=== PATIENT | female | born 1990 | race Caucasian/White ===

== ENCOUNTER 2020-02-19 15:49 | Emergency (ER) | payer MEDICAID ==
--- NOTE | 2020-02-19 16:19 | EDM.PDOC ---
ED HPI GENERAL MEDICAL PROBLEM - General Chief Complaint: ENT Problem Stated Complaint: LT SIDE TOOTH PAIN Time Seen by Provider: 02/19/20 16:10 Source of Information: Reports: Patient History Limitations: Reports: No Limitations - History of Present Illness INITIAL COMMENTS - FREE TEXT/NARRATIVE: Patient presents to the ED today with left upper tooth pain/broken tooth. Patient has had a broken tooth for the last few months, pain became worse the last week, lying down makes pain worse. Patient has had little relief with Ibuprofen and Tylenol. Patient has tried Dentek with little relief. Patient denies any fever/chills or other complaints. 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 ED EXAM, ENT - Physical Exam Exam: See Below Exam Limited By: No Limitations General Appearance: Alert, WD/WN, No Apparent Distress Eye Exam: Bilateral Eye: EOMI Ears: Normal External Exam Nose: Normal Inspection Mouth/Throat: Normal Inspection, Other (uvula is midline, no trismus or fabiano's angina, no abscess identified that would require I and D. Patient has broken upper left back molar) Head: Atraumatic Neck: Normal Inspection, Supple, Non-Tender, Full Range of Motion. No: Lymphadenopathy (R), Lymphadenopathy (L) Respiratory/Chest: No Respiratory Distress Cardiovascular: Tachycardia Extremities: Normal Inspection Neurological: Alert, Oriented Psychiatric: Normal Affect Skin: Warm, Dry Lymphatic: No Adenopathy Course - Vital Signs Last Recorded V/S: Last Vital Signs Temp 36.7 C 02/19/20 16:05 Pulse 110 H 02/19/20 16:05 Resp 12 02/19/20 16:05 BP 152/92 H 02/19/20 16:05 Pulse Ox 99 02/19/20 16:05 Start Amoxicillin Ibuprofen for pain Percocet for severe pain. Dental referral request placed. Narcotic safety and side effects discussed as well as reasons to return to the ED. Patient agreeable to plan of care and discharged in stable condition. Departure - Departure Time of Disposition: 17:00 Disposition: Home, Self-Care 01 Condition: Good Clinical Impression: Pain, dental Fracture of tooth Qualifiers: Encounter type: initial encounter Fracture type: closed Qualified Code(s): S02.5XXA - Fracture of tooth (traumatic), initial encounter for closed fracture - Discharge Information Instructions: Tooth Injuries, [id number] Referrals: PCP,None [Primary Care Provider] - Forms: ED Department Discharge Additional Instructions: You can take Ibuprofen 600 mg every 6 hours as needed for pain. Percocet as prescribed as needed for pain, this is a narcotic and does contain Tylenol, do not drive or drink alcohol if you take it. Start Amoxicillin today and take as directed. Follow up with Dentistry as scheduled. Sepsis Event Note (ED) - Evaluation Sepsis Screening Result: No Definite Risk - Focused Exam Vital Signs: Vital Signs Temp Pulse Resp BP Pulse Ox 02/19/20 16:05 36.7 C 110 H 12 152/92 H 99 02/19/20 16:01 36.7 C 110 H 12 152/92 H 99
== END 2020-02-19 16:24 | disposition home or self-care (01) ==
LOC: JP.ED 15:49
DX: K03.81 Cracked tooth (principal); E66.9 Obesity, unspecified; Z68.43 Body mass index [BMI] 50.0-59.9, adult; I11.0 Hypertensive heart disease with heart failure; I50.9 Heart failure, unspecified
CPT/HCPCS: 99282

== ENCOUNTER 2020-09-11 16:35 | Emergency (ER) | payer MEDICAID ==
--- NOTE | 2020-09-11 17:11 | EDM.PDOC ---
ED HPI GENERAL MEDICAL PROBLEM - General Chief Complaint: Chest Pain Stated Complaint: RT SIDE CHEST PAIN Time Seen by Provider: 09/11/20 17:00 Source of Information: Reports: Patient History Limitations: Reports: No Limitations - History of Present Illness INITIAL COMMENTS - FREE TEXT/NARRATIVE: 29-year-old female who has been struggling with right-sided chest wall pain radiating through the shoulder and down her arm for the past 3 days. She has been taking ibuprofen with minimal relief. She is very anxious, her father had heart failure and she is concerned she is having a heart attack. It is very pleuritic in nature, hurts to breathe or move her right arm. No rashes, cough, shortness of breath or fever. 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, Musculoskeletal History: Reports: Fracture Psychiatric History: Reports: Anxiety, Depression, Panic Attack, PTSD Endocrine/Metabolic History: Reports: Obesity/BMI 30+ - Infectious Disease History Infectious Disease History: Reports: Chicken Pox - Past Surgical History Head Surgeries/Procedures: Reports: None HEENT Surgical History: Reports: Tonsillectomy Cardiovascular Surgical History: Reports: None GI Surgical History: Reports: Hernia, Abdominal Female Surgical History: Reports: Section Endocrine Surgical History: Reports: None Musculoskeletal Surgical History: Reports: Other (See Below) Other Musculoskeletal Surgeries/Procedures:: left ankle Dermatological Surgical History: Reports: None Social & Family History - Tobacco Use Tobacco Use Status *Q: Never Tobacco User Second Hand Smoke Exposure: No - Caffeine Use Caffeine Use: Reports: None - Recreational Drug Use Recreational Drug Use: No ED ROS GENERAL - Review of Systems Review Of Systems: See Below Constitutional: Denies: Fever, Chills HEENT: Reports: No Symptoms Respiratory: Reports: Pleuritic Chest Pain. Denies: Shortness of Breath, Cough Cardiovascular: Reports: Chest Pain. Denies: Palpitations GI/Abdominal: Denies: Nausea, Vomiting Musculoskeletal: Reports: Other (Pain radiating down the right arm) Skin: Reports: No Symptoms Psychiatric: Reports: Anxiety ED EXAM, GENERAL - Physical Exam Exam: See Below Exam Limited By: No Limitations General Appearance: Alert, No Apparent Distress, Anxious Head: Atraumatic Respiratory/Chest: No Respiratory Distress, Lungs Clear, Other (O2 saturations 99 to 100%, she is very sore to palpation along the right anterior costochondral area) Cardiovascular: Regular Rate, Rhythm. No: Tachycardia Extremities: Other (I cannot reproduce pain with palpation of the right arm, but she has intense sharp pain in the anterior right chest with abduction of the right arm against resistance) Neurological: Alert, Oriented #1 Interpretation Rhythm: NSR Course - Vital Signs Last Recorded V/S: Last Vital Signs Temp 97.7 F 09/11/20 16:58 Pulse 83 09/11/20 16:58 Resp 16 09/11/20 16:58 BP 172/109 H 09/11/20 16:58 Pulse Ox 99 09/11/20 16:58 - Orders/Labs/Meds Orders: Active Orders 24 hr Category Date Time Status Chest 2V [CR] Routine Exams 09/11/20 17:06 Taken EKG 12 Lead [EK] Routine Ther 09/11/20 17:06 Ordered Meds: Medications Discontinued Medications Generic Name Dose Route Start Last Admin Trade Name Dionq PRN Reason Stop Dose Admin Lorazepam 1 mg 09/11/20 17:29 09/11/20 17:34 Ativan IM 09/11/20 17:30 1 mg ONETIME ONE Administration - Re-Assessments/Exams Free Text/Narrative Re-Assessment/Exam: 09/11/20 17:10 Because of the presentation of chest pain, an EKG was done by nursing and was normal. A two-view chest x-ray will be obtained. This is likely costochondritis or pleurisy, PE is extremely unlikely with 100% O2 saturations and no tachycardia, especially being positional and worse with palpation. 09/12/20 07:05 Chest xray is normal Departure - Departure Time of Disposition: 17:42 Disposition: Home, Self-Care 01 Clinical Impression: Costochondritis, acute, Anxiety about health - Discharge Information Instructions: Costochondritis, [id number] Referrals: PCP,None [Primary Care Provider] - Forms: ED Department Discharge Care Plan Goals: Continue with ibuprofen, add tramadol as needed and continue activity as tolerated. A heating pad to the anterior right chest may be helpful. Recheck with Dr. Licea as soon as she has an opening. Sepsis Event Note (ED) - Evaluation Sepsis Screening Result: No Definite Risk - My Orders Last 24 Hours: My Active Orders 09/11/20 17:06 Chest 2V [CR] Routine EKG 12 Lead [EK] Routine - Assessment/Plan Last 24 Hours: My Active Orders 09/11/20 17:06 Chest 2V [CR] Routine EKG 12 Lead [EK] Routine
[2020-09-11] MEDS ORDERED: LORazepam 2 MG/ML SDV IM ONE (17:29)
--- NOTE | 2020-09-12 08:58 | CR ---
CHEST: 2 view CLINICAL HISTORY:Dyspnea COMPARISON:None FINDINGS: The heart size, pulmonary vascularity and hilar structures are normal. No infiltrate effusion or pneumothorax is seen. IMPRESSION: No acute cardiopulmonary process.
== END 2020-09-11 17:42 | disposition home or self-care (01) ==
LOC: JP.ED 16:35
DX: M94.0 Chondrocostal junction syndrome [Tietze] (principal); F41.9 Anxiety disorder, unspecified; I10 Essential (primary) hypertension; E66.9 Obesity, unspecified; Z68.42 Body mass index [BMI] 45.0-49.9, adult; Z88.8 Allergy status to other drugs, medicaments and biological substances
CPT/HCPCS: 71046; 93005; 96372; 99283; 99285; J2060

== ENCOUNTER 2021-02-28 05:45 | Emergency (ER) | payer MEDICAID ==
[2021-02-28] MEDS ORDERED: Bupivacaine 0.5%/EPINEPHrine 1:200,000 1.8 ML Cartridge INJECT ONE (06:14)
--- NOTE | 2021-02-28 06:27 | EDM.PDOC ---
ED HPI GENERAL MEDICAL PROBLEM - General Chief Complaint: ENT Problem Stated Complaint: TOOTH PAIN Time Seen by Provider: 02/28/21 06:05 Source of Information: Reports: Patient History Limitations: Reports: No Limitations - History of Present Illness INITIAL COMMENTS - FREE TEXT/NARRATIVE: Pallavi is a 30-year-old female presenting to the ED for evaluation of severe tooth pain involving tooth #17 that started several days ago and has been preventing her from being able to sleep. She has been trying to take care of her 1-year-old daughter, however, the pain is become so severe that she is feeling more and more rundown. She has a history of dental caries in this tooth but usually is able to take a tooth brushing cleared out thereby leaving any pressure pain. 2 days ago this no longer seem to work. She does have some swelling of the gum around the tooth. She has not been able to get into see a dentist to address this. She denies any fever, chills, nausea or vomiting. She has not had any foul tasting substance in her mouth resulting from purulent discharge from the tooth. 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, Musculoskeletal History: Reports: Fracture Psychiatric History: Reports: Anxiety, Depression, Panic Attack, PTSD Endocrine/Metabolic History: Reports: Obesity/BMI 30+ - Infectious Disease History Infectious Disease History: Reports: Chicken Pox - Past Surgical History Head Surgeries/Procedures: Reports: None HEENT Surgical History: Reports: Tonsillectomy GI Surgical History: Reports: Hernia, Abdominal Female Surgical History: Reports: Section Endocrine Surgical History: Reports: None Musculoskeletal Surgical History: Reports: Other (See Below) Other Musculoskeletal Surgeries/Procedures:: left ankle Social & Family History - Tobacco Use Tobacco Use Status *Q: Never Tobacco User - Caffeine Use Caffeine Use: Reports: None - Recreational Drug Use Recreational Drug Use: No ED ROS ENT - Review of Systems Review Of Systems: See Below Constitutional: Reports: No Symptoms HEENT: Reports: Dental Pain (Dental pain and swelling around tooth #17 that has advanced caries) Respiratory: Reports: No Symptoms ED EXAM, ENT - Physical Exam Exam: See Below Exam Limited By: No Limitations General Appearance: Alert, Moderate Distress Mouth/Throat: Dental Abcess (Gingival swelling around the base of tooth #17), Dental Pain (Pain with palpation on tooth #17), Dental Tenderness (Three quarters of the crown has eroded exposing dentin and pulp. There is significant tenderness of the tooth with gingival swelling.), Gum Swelling. No: Throat Swelling, Tongue Swelling Head: Atraumatic, Normocephalic. No: Facial Swelling Neck: Lymphadenopathy (L). No: Lymphadenopathy (R) Course - Vital Signs Last Recorded V/S: Last Vital Signs Temp 36.4 C 02/28/21 06:12 Pulse 70 02/28/21 06:12 Resp 17 02/28/21 06:12 BP 194/90 H 02/28/21 06:12 Pulse Ox 99 02/28/21 06:12 - Orders/Labs/Meds Meds: Medications Discontinued Medications Generic Name Dose Route Start Last Admin Trade Name Dinoq PRN Reason Stop Dose Admin Bupivacaine HCl/Epinephrine Bitart 1.8 ml 02/28/21 06:14 02/28/21 06:20 Bupivacaine 0.5%/Epinephrine 1:200,000 1.8 Ml Cartridge INJECT 02/28/21 06:15 1.8 ml ONETIME ONE Administration - Re-Assessments/Exams Free Text/Narrative Re-Assessment/Exam: 02/28/21 06:30 I offered to do a inferior alveolar dental block using 0.5% bupivacaine with epinephrine. Patient provided verbal consent to proceed. A #31 needle was advanced into the area adjacent to the mandible where 1.8 mL of bupivacaine 0.5% with epinephrine was instilled around the inferior alveolar nerve. Patient had significant improvement of pain symptoms. Patient has significant evidence for an apical abscess of the tooth #17. We will put her on clindamycin 300 mg 3 times daily for 10 days. I will also give her a small amount of hydrocodone for breakthrough pain should the dental block wore off too soon. I have given her a referral to the [facility] for Wednesday morning at 815. At this time she is suitable for discharge in satisfactory condition. Indications return to the ED were discussed. Questions were answered prior to discharge. Departure - Departure Time of Disposition: 06:24 Disposition: Home, Self-Care 01 Clinical Impression: Dental abscess, Dental caries - Discharge Information Instructions: Dental Abscess, [id number] Referrals: PCP,None [Primary Care Provider] - Forms: ED Department Discharge Care Plan Goals: You have significant erosion of tooth #17 down to the pulp in dentin. This is resulted in an apical abscess of the tooth which is causing swelling in the jaw now. This tooth will need to likely be extracted as it appears to be too far gone for a root canal. I have given you a dental block to hopefully numb this area up and allow you to sleep, eat, and drink. This should last up to a day and hopefully will reduce your pain with improvement of the infection on the antibiotic. I have included a referral to the [facility] dental clinic on [facility] for Wednesday morning. Please arrive there by 8:15 AM. In addition, I am putting you on clindamycin 300 mg 3 times a day for 10 days to clear the infection. I have also included a small amount of hydrocodone for pain control should the injection wear off. Sepsis Event Note (ED) - Evaluation Sepsis Screening Result: No Definite Risk - Focused Exam Vital Signs: Vital Signs Temp Pulse Resp BP Pulse Ox 02/28/21 06:12 36.4 C 70 17 194/90 H 99 02/28/21 06:10 36.4 C 70 17 194/90 H 99 - Problem List & Annotations (1) Dental abscess SNOMED Code(s): 761452592 Code(s): K04.7 - PERIAPICAL ABSCESS WITHOUT SINUS Status: Acute Priority: Low Current Visit: Yes (2) Dental caries SNOMED Code(s): 05005920 Code(s): K02.9 - DENTAL CARIES, UNSPECIFIED Status: Acute Priority: Low Current Visit: Yes - Problem List Review Problem List Initiated/Reviewed/Updated: Yes
== END 2021-02-28 06:32 | disposition home or self-care (01) ==
LOC: JP.ED 05:45
DX: K04.7 Periapical abscess without sinus (principal); K02.9 Dental caries, unspecified; I10 Essential (primary) hypertension; E66.9 Obesity, unspecified; Z68.42 Body mass index [BMI] 45.0-49.9, adult; Z88.6 Allergy status to analgesic agent
CPT/HCPCS: 99282; J3490

== ENCOUNTER 2021-04-23 21:21 | Emergency (ER) | payer MEDICAID ==
[2021-04-23] MEDS ORDERED: hydrOXYzine HCL 100 MG/2 ML SDV IM ONE (22:27)
--- NOTE | 2021-04-23 23:12 | EDM.PDOC ---
ED HPI GENERAL MEDICAL PROBLEM - General Chief Complaint: Abdominal Pain Stated Complaint: FAINTED LEFT ABD PAIN Time Seen by Provider: 04/23/21 21:33 Source of Information: Reports: Patient, Family (), RN History Limitations: Reports: No Limitations - History of Present Illness INITIAL COMMENTS - FREE TEXT/NARRATIVE: chief complaint: lower abdominal cramps and fainted while trying to have bowel movement This is a 30 year old female present to the ER with her , reports has problems with constipation and diarrhea. She was trying to have a bowel movement, pushing hard and fainted. This has happened once before with bowel movement. Her reports she has been sick for the past two days and is worried she has Covid-19 Onset: Gradual Duration: Day(s): (2), Constant Location: Reports: Abdomen, Generalized (not feeling well for the past two days) Severity: Moderate Improves with: Reports: None Worsens with: Reports: None Associated Symptoms: Reports: Loss of Appetite, Malaise, Nausea/Vomiting, Syncope Left Lower Anterior Abdominal Pain Score (Numeric/FACES): 9 - Related Data Allergies Allergy/AdvReac Type Severity Reaction Status Date / Time ketorolac [From Toradol] AdvReac Hives Verified 02/28/21 06:06 Home Meds: Home Meds NK [No Known Home Meds] 02/19/20 [History] Past Medical History HEENT History: Reports: None Cardiovascular History: Reports: Hypertension Gastrointestinal History: Reports: None Genitourinary History: Reports: None 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, Musculoskeletal History: Reports: Fracture Psychiatric History: Reports: Anxiety, Depression, Panic Attack, PTSD Endocrine/Metabolic History: Reports: Obesity/BMI 30+ Hematologic History: Reports: Anemia - Infectious Disease History Infectious Disease History: Reports: Chicken Pox - Past Surgical History Head Surgeries/Procedures: Reports: None HEENT Surgical History: Reports: Tonsillectomy Cardiovascular Surgical History: Reports: None GI Surgical History: Reports: Hernia, Abdominal Female Surgical History: Reports: Section Endocrine Surgical History: Reports: None Musculoskeletal Surgical History: Reports: Other (See Below) Other Musculoskeletal Surgeries/Procedures:: left ankle Dermatological Surgical History: Reports: None Social & Family History - Tobacco Use Tobacco Use Status *Q: Never Tobacco User - Caffeine Use Caffeine Use: Reports: Coffee, Tea - Recreational Drug Use Recreational Drug Use: Yes Drug Use in Last 12 Months: Yes Recreational Drug Type: Reports: Marijuana/Hashish ED ROS GENERAL - Review of Systems Review Of Systems: See Below Constitutional: Reports: Malaise (not feeling well for the past two days), Fatigue, Decreased Appetite HEENT: Reports: No Symptoms Respiratory: Reports: No Symptoms Cardiovascular: Reports: No Symptoms Endocrine: Reports: No Symptoms GI/Abdominal: Reports: Abdominal Pain, Constipation, Diarrhea, Decreased Appetite, Nausea : Reports: No Symptoms Musculoskeletal: Reports: Muscle Pain Skin: Reports: No Symptoms Neurological: Reports: No Symptoms Psychiatric: Reports: No Symptoms Hematologic/Lymphatic: Reports: No Symptoms Immunologic: Reports: No Symptoms ED EXAM, GI/ABD - Physical Exam Exam: See Below Exam Limited By: No Limitations General Appearance: Alert, WD/WN, No Apparent Distress, Obese, Other (pleasant, neat and well groomed. polite.) Eyes: Bilateral: Normal Appearance Ears: Normal External Exam, Normal Canal, Hearing Grossly Normal, Normal TMs Nose: Normal Inspection, Normal Mucosa, No Blood Throat/Mouth: Normal Inspection, Normal Lips, Normal Teeth, Normal Gums, Normal Oropharynx, Normal Voice, No Airway Compromise Head: Atraumatic, Normocephalic Neck: Normal Inspection, Supple, Non-Tender, Full Range of Motion Respiratory/Chest: No Respiratory Distress, Lungs Clear, Normal Breath Sounds, No Accessory Muscle Use, Chest Non-Tender Cardiovascular: Normal Peripheral Pulses, Regular Rate, Rhythm, No Edema, No Gallop, No JVD, No Murmur, No Rub GI/Abdominal Exam: Normal Bowel Sounds, Soft, Non-Tender, No Organomegaly, No Distention, No Abnormal Bruit, No Mass, Pelvis Stable (Female) Exam: Deferred Rectal (Female) Exam: Deferred Back Exam: Normal Inspection, Full Range of Motion, NT Extremities: Normal Inspection, Normal Range of Motion, Non-Tender, Normal Capillary Refill, No Pedal Edema Neurological: Alert, Oriented, CN II-XII Intact, Normal Cognition, Normal Gait, Normal Reflexes, No Motor/Sensory Deficits Psychiatric: Normal Affect, Normal Mood Skin Exam: Warm, Dry, Intact, Normal Color, No Rash Lymphatic: No Adenopathy Course - Vital Signs Last Recorded V/S: Last Vital Signs Temp 98.1 F 04/23/21 21:51 Pulse 60 04/23/21 21:54 Resp 20 04/23/21 21:54 BP 146/73 H 04/23/21 21:54 Pulse Ox 99 04/23/21 21:54 - Orders/Labs/Meds Orders: Active Orders 24 hr Category Date Time Status Abdomen 2V AP Flat Upright [CR] Urgent Exams 04/23/21 22:22 Taken EKG 12 Lead [EK] Urgent Ther 04/23/21 22:29 Ordered Labs: Laboratory Tests 04/23/21 04/23/21 04/23/21 Range/Units 22:32 22:32 22:36 Urine Color Yellow (YELLOW) Urine Appearance Clear (CLEAR) Urine pH 5.5 (5.0-8.0) Ur Specific [place] >= 1.030 (1.008-1.030) Urine Protein Negative (NEGATIVE) mg/dL Urine Glucose (UA) Negative (NEGATIVE) mg/dL Urine Ketones Negative (NEGATIVE) mg/dL Urine Occult Blood Negative (NEGATIVE) Urine Nitrite Negative (NEGATIVE) Urine Bilirubin Negative (NEGATIVE) Urine Urobilinogen 0.2 (0.2-1.0) EU/dL Ur Leukocyte Esterase Negative (NEGATIVE) Urine RBC 0-5 (0-5) Urine WBC 0-5 (0-5) Ur Epithelial Cells Many Amorphous Sediment Many Urine Bacteria Few Urine Mucus Moderate Urinalysis Comment Clue cells seen Urine HCG, Qual Negative SARS CoV-2 RNA Rapid TYLER Positive H Meds: Medications Discontinued Medications Generic Name Dose Route Start Last Admin Trade Name Freq PRN Reason Stop Dose Admin Hydroxyzine HCl 50 mg 04/23/21 22:27 04/23/21 22:33 Hydroxyzine Hcl 100 Mg/2 Ml Sdv IM 04/23/21 22:28 50 mg ONETIME ONE Administration - Re-Assessments/Exams Free Text/Narrative Re-Assessment/Exam: 04/23/21 23:16 abdominal cramps - Vistaril 50 mg IM once. labs ua positive clue cells. negative hcg covid test positive abdomen xray discussed lab results with Pallavi- advised to follow Covid 19 precautions will treat bacterial vaginosis with Flagyl 500mg po bid x 5 days Pallavi agree with plan of care. Departure - Departure Time of Disposition: 23:19 Disposition: Home, Self-Care 01 Condition: Good Clinical Impression: Bacterial vaginosis, COVID-19 - Discharge Information *PRESCRIPTION DRUG MONITORING PROGRAM REVIEWED*: Not Applicable *COPY OF PRESCRIPTION DRUG MONITORING REPORT IN PATIENT ALEC: Not Applicable Instructions: Bacterial Vaginosis, [id number], COVID-19: How to Protect Yourself and Others - [facility], COVID-19: What to Do If You Are Sick- [facility] (10/09/2020) Referrals: PCP,None [Primary Care Provider] - Forms: ED Department Discharge Care Plan Goals: Bacterial vaginosis -Flagyl 500 mg by mouth in morning and evening for 7 days Covid -19 -discharge instruction given related to Covid -advised to return to ER if has worsen of symptoms -Vistaril 25 mg po as directed for abdominal cramps. Sepsis Event Note (ED) - Focused Exam Vital Signs: Vital Signs Temp Pulse Resp BP Pulse Ox 04/23/21 21:54 60 20 146/73 H 99 04/23/21 21:51 98.1 F 67 18 153/78 H 97 - Problem List & Annotations (1) COVID-19 SNOMED Code(s): 829561957 Code(s): U07.1 - COVID-19 Status: Acute Priority: High Current Visit: Y es (2) Bacterial vaginosis SNOMED Code(s): 855947267 Code(s): N76.0 - ACUTE VAGINITIS; B96.89 - OTH BACTERIAL AGENTS THE CAUSE OF DISEASES CLASSD [id number] Status: Acute Priority: High Current Visit: Yes - Problem List Review Problem List Initiated/Reviewed/Updated: Yes - My Orders Last 24 Hours: My Active Orders 04/23/21 22:22 Abdomen 2V AP Flat Upright [CR] Urgent 04/23/21 22:29 EKG 12 Lead [EK] Urgent - Assessment/Plan Last 24 Hours: My Active Orders 04/23/21 22:22 Abdomen 2V AP Flat Upright [CR] Urgent 04/23/21 22:29 EKG 12 Lead [EK] Urgent Plan: Bacterial vaginosis -Flagyl 500 mg by mouth in morning and evening for 7 days Covid -19 -discharge instruction given related to Covid -advised to return to ER if has worsen of symptoms -Vistaril 25 mg po as directed for abdominal cramps.
--- NOTE | 2021-04-24 09:36 | CR ---
Abdomen 2V AP Flat Upright CLINICAL HISTORY: Abdominal pain FINDINGS: No free air is identified. The small intestinal gas pattern is nonacute. There is gas and feces throughout the colon. IMPRESSION: Nonacute intestinal gas pattern
--- NOTE | 2021-04-24 18:39 | PCM.EKG ---
#1 Interpretation EKG Date: 04/23/21 Time: 22:35 Rhythm: Other (Sinus dysrhythmia) Rate (Beats/Min): 62 [place]: Normal P-Wave: Present QRS: Normal ST-T: Normal QT: Normal Comparison: NA - No Prior EKG EKG Interpretation Comments: Sinus dysrhythmia, otherwise normal EKG
== END 2021-04-23 23:45 | disposition home or self-care (01) ==
LOC: JP.ED 21:21
DX: U07.1 COVID-19 (principal); N76.0 Acute vaginitis; I10 Essential (primary) hypertension; E66.9 Obesity, unspecified; Z68.41 Body mass index [BMI] 40.0-44.9, adult; Z88.6 Allergy status to analgesic agent
CPT/HCPCS: 74019; 81001; 81025; 87635; 93005; 96372; 99284; J3410; U0002

== ENCOUNTER 2021-05-04 20:13 | Emergency (ER) | payer MEDICAID ==
--- NOTE | 2021-05-04 21:18 | EDM.PDOC ---
ED HPI GENERAL MEDICAL PROBLEM - General Chief Complaint: Chest Pain Stated Complaint: chest pain Time Seen by Provider: 05/04/21 21:09 Source of Information: Reports: Patient History Limitations: Reports: No Limitations - History of Present Illness INITIAL COMMENTS - FREE TEXT/NARRATIVE: Pallavi Patiño is a 30-year-old female presenting to the ED for evaluation of sharp, stabbing, right-sided chest pain. She states that she has had this prior and was told it was due to anxiety. Patient reports that she was playing with her kids today and started to get sharp, stabbing pain below her right breast that radiated down her right arm. The pain was worse with deep inspiration and certain movements. The patient denies having any shortness of breath or cough. She has not had any fever or chills. She is recovering from having Covid 3 weeks ago. Denies any trauma or injury. Right Chest Pain Score (Numeric/FACES): 9 - Related Data Allergies Allergy/AdvReac Type Severity Reaction Status Date / Time ketorolac [From Toradol] AdvReac Hives Verified 05/04/21 20:27 Home Meds: Home Meds NK [No Known Home Meds] 02/19/20 [History] Past Medical History HEENT History: Reports: None Cardiovascular History: Reports: Hypertension Gastrointestinal History: Reports: None Genitourinary History: Reports: None [employer] History: Reports: Polycystic Ovaries, Musculoskeletal History: Reports: Fracture Psychiatric History: Reports: Anxiety, Depression, Panic Attack, PTSD Endocrine/Metabolic History: Reports: Obesity/BMI 30+ Hematologic History: Reports: Anemia - Infectious Disease History Infectious Disease History: Reports: Chicken Pox - Past Surgical History Head Surgeries/Procedures: Reports: None HEENT Surgical History: Reports: Tonsillectomy Cardiovascular Surgical History: Reports: None GI Surgical History: Reports: Hernia, Abdominal Female Surgical History: Reports: Section Endocrine Surgical History: Reports: None Musculoskeletal Surgical History: Reports: Other (See Below) Other Musculoskeletal Surgeries/Procedures:: left ankle Dermatological Surgical History: Reports: None Social & Family History - Tobacco Use Tobacco Use Status *Q: Current Status Unknown - Caffeine Use Caffeine Use: Reports: Coffee - Recreational Drug Use Recreational Drug Use: Yes Recreational Drug Type: Reports: Marijuana/Hashish ED ROS GENERAL - Review of Systems Review Of Systems: See Below Constitutional: Reports: No Symptoms HEENT: Reports: No Symptoms Respiratory: Reports: No Symptoms Cardiovascular: Reports: Chest Pain (Right-sided chest pain below the right breast anteriorly and laterally. Pain worsens with inspiration and radiates down the right arm.) Endocrine: Reports: No Symptoms GI/Abdominal: Reports: No Symptoms : Reports: No Symptoms Musculoskeletal: Reports: No Symptoms Skin: Reports: No Symptoms Neurological: Reports: No Symptoms Psychiatric: Reports: No Symptoms Hematologic/Lymphatic: Reports: No Symptoms Immunologic: Reports: No Symptoms ED EXAM, GENERAL - Physical Exam Exam: See Below Exam Limited By: No Limitations General Appearance: Alert, No Apparent Distress, Anxious, Obese Eye Exam: Bilateral Eye: EOMI, PERRL Throat/Mouth: Normal Inspection, Normal Oropharynx, Normal Voice, No Airway Compromise Head: Atraumatic, Normocephalic Neck: Normal Inspection, Supple, Non-Tender, Full Range of Motion. No: Lymphadenopathy (R), Lymphadenopathy (L) Respiratory/Chest: No Respiratory Distress, Lungs Clear, Normal Breath Sounds, Other (I am able to reproduce the pain with pushing on the right side of the sternum and right anterior chest wall.) Cardiovascular: Normal Peripheral Pulses, Regular Rate, Rhythm, No Murmur Peripheral Pulses: 2+: Radial (L), Radial (R) GI/Abdominal: Normal Bowel Sounds, Soft, Non-Tender Extremities: Normal Inspection Neurological: Alert, Oriented, Normal Cognition, No Motor/Sensory Deficits Psychiatric: Normal Affect, Normal Mood Skin Exam: Warm, Dry, Normal Color, No Rash Course - Vital Signs Last Recorded V/S: Last Vital Signs Temp 36.4 C 05/04/21 20:26 Pulse 54 L 05/04/21 22:57 Resp 16 05/04/21 22:57 BP 126/79 05/04/21 22:57 Pulse Ox 99 05/04/21 22:57 - Orders/Labs/Meds Orders: Active Orders 24 hr Category Date Time Status Chest 2V [CR] Stat Exams 05/04/21 22:42 Taken Labs: Laboratory Tests 05/04/21 05/04/21 05/04/21 Range/Units 21:30 21:31 21:31 WBC 10.9 (4.5-11.0) K/uL RBC 4.60 (3.30-5.50) M/uL Hgb 13.1 (12.0-15.0) g/dL Hct 38.1 (36.0-48.0) % MCV 83 (80-98) fL MCH 29 (27-31) pg MCHC 34 (32-36) % Plt Count 385 (150-400) K/uL Neut % (Auto) 61.5 (36-66) % Lymph % (Auto) 30.4 (24-44) % [place] % (Auto) 6.0 (2-6) % Eos % (Auto) 1.6 L (2-4) % Baso % (Auto) 0.5 (0-1) % D-Dimer, Quantitative 270.50 (0.0-500.0) ng/mL Sodium (140-148) mmol/L Potassium (3.6-5.2) mmol/L Chloride (100-108) mmol/L Carbon Dioxide (21-32) mmol/L Anion Gap (5.0-14.0) mmol/L BUN (7-18) mg/dL Creatinine (0.6-1.0) mg/dL Est Cr Clr Drug Dosing mL/min Estimated GFR (MDRD) (>60) Glucose (74-106) mg/dL Calcium (8.5-10.1) mg/dL Total Bilirubin 0.3 (0.2-1.0) mg/dL Direct Bilirubin 0.08 (0.0-0.2) mg/dL Indirect Bilirubin TNP AST 15 (15-37) U/L ALT 25 (12-78) U/L Alkaline Phosphatase 77 (46-116) U/L Troponin I (0.000-0.056) ng/mL C-Reactive Protein (0.0-0.3) mg/dL Total Protein 6.3 L (6.4-8.2) g/dL Albumin 3.7 (3.4-5.0) g/dL Globulin 2.6 (2.3-3.5) g/dL Albumin/Globulin Ratio 1.4 (1.2-2.2) 05/04/21 Range/Units 21:31 WBC (4.5-11.0) K/uL RBC (3.30-5.50) M/uL Hgb (12.0-15.0) g/dL Hct (36.0-48.0) % MCV (80-98) fL MCH (27-31) pg MCHC (32-36) % Plt Count (150-400) K/uL Neut % (Auto) (36-66) % Lymph % (Auto) (24-44) % [place] % (Auto) (2-6) % Eos % (Auto) (2-4) % Baso % (Auto) (0-1) % D-Dimer, Quantitative (0.0-500.0) ng/mL Sodium 138 L (140-148) mmol/L Potassium 3.9 (3.6-5.2) mmol/L Chloride 102 (100-108) mmol/L Carbon Dioxide 25 (21-32) mmol/L Anion Gap 14.9 H (5.0-14.0) mmol/L BUN 9 (7-18) mg/dL Creatinine 0.7 (0.6-1.0) mg/dL Est Cr Clr Drug Dosing 109.01 mL/min Estimated GFR (MDRD) > 60 (>60) Glucose 106 (74-106) mg/dL Calcium 8.6 (8.5-10.1) mg/dL Total Bilirubin (0.2-1.0) mg/dL Direct Bilirubin (0.0-0.2) mg/dL Indirect Bilirubin AST (15-37) U/L ALT (12-78) U/L Alkaline Phosphatase (46-116) U/L Troponin I < 0.017 (0.000-0.056) ng/mL C-Reactive Protein 0.16 (0.0-0.3) mg/dL Total Protein (6.4-8.2) g/dL Albumin (3.4-5.0) g/dL Globulin (2.3-3.5) g/dL Albumin/Globulin Ratio (1.2-2.2) - Radiology Interpretation Free Text/Narrative:: I reviewed the chest x-ray and compared it to her previous from earlier this year. There appears to be elevation of the right hemidiaphragm which may either be to the poor inspiration or perhaps enlargement of the liver. There is no evidence for any infiltrates. Her cardiac silhouette is normal. - Re-Assessments/Exams Free Text/Narrative Re-Assessment/Exam: 05/04/21 23:46 I reviewed the patient's labs showing a normal CBC, basic metabolic profile, troponin, D-dimer, and C-reactive protein. Because of the elevation the right hemidiaphragm we checked liver enzymes as well. Liver transaminases were normal. It appears that the patient is likely having pain due to irritation of either the muscle or nerve in her right chest wall. I recommend the use of ibuprofen or Aleve for pain control. I reassured her that I did not see anything abnormal in her work-up except for the liver enlargement. At this time she is suitable for discharge home in satisfactory condition. Indications to return to the ED were discussed. Departure - Departure Time of Disposition: 23:40 Disposition: Home, Self-Care 01 Clinical Impression: Acute chest wall pain - Discharge Information Instructions: Chest Wall Pain, [id number] Referrals: PCP,None [Primary Care Provider] - Forms: ED Department Discharge Care Plan Goals: Your right diaphragm was elevated by a swollen liver. Your liver enzymes however were normal. This is likely due to diet causing fatty deposition in your liver otherwise known as steatohepatitis. I do not believe that this is the cause for your pain, rather, you have irritation of either a muscle or a nerve in the chest wall causing your pain. I would recommend taking Aleve which is a strong anti-inflammatory to treat your symptoms when you get it. Even though it is painful it is not worrisome. We did check you for everything from heart to blood clots to infection and did not find any evidence for this in your work-up. Sepsis Event Note (ED) - Focused Exam Vital Signs: Vital Signs Temp Pulse Resp BP Pulse Ox 05/04/21 22:57 54 L 16 126/79 99 05/04/21 20:50 69 16 116/72 96 05/04/21 20:26 36.4 C 90 18 157/101 H 97 - Problem List & Annotations (1) Acute chest wall pain SNOMED Code(s): 740180142, 538511038 Code(s): R07.89 - OTHER CHEST PAIN Status: Acute - My Orders Last 24 Hours: My Active Orders 05/04/21 22:42 Chest 2V [CR] Stat - Assessment/Plan Last 24 Hours: My Active Orders 05/04/21 22:42 Chest 2V [CR] Stat
--- NOTE | 2021-05-05 09:24 | CR ---
CHEST: 2 view CLINICAL HISTORY:Right-sided chest pain COMPARISON:August 2020 FINDINGS: Heart size is mildly enlarged. It has increased since prior study. Some of this may be technical. No infiltrate effusion or pneumothorax is seen. Impression: No acute cardiac pulmonary process Mild cardiomegaly
== END 2021-05-04 23:55 | disposition home or self-care (01) ==
LOC: JP.ED 20:13
DX: R07.89 Other chest pain (principal); I10 Essential (primary) hypertension; E66.9 Obesity, unspecified; Z68.42 Body mass index [BMI] 45.0-49.9, adult; Z88.6 Allergy status to analgesic agent
CPT/HCPCS: 36415; 71046; 71046-26; 80048; 80076; 84484; 85025; 85379; 86140; 99285-25

== ENCOUNTER 2021-08-29 20:53 | Emergency (ER) | payer MEDICAID | END 2021-08-29 21:55 | disposition home or self-care (01) | LOC: JP.ED 20:53 | DX: F41.9 Anxiety disorder, unspecified (principal); I10 Essential (primary) hypertension; E66.9 Obesity, unspecified; Z68.42 Body mass index [BMI] 45.0-49.9, adult; Z88.6 Allergy status to analgesic agent | CPT/HCPCS: 99283 ==

== ENCOUNTER 2021-09-07 07:20 | Emergency (ER) | payer MEDICAID | END 2021-09-07 08:14 | disposition home or self-care (01) | LOC: JP.ED 07:20 | DX: K04.7 Periapical abscess without sinus (principal); I10 Essential (primary) hypertension; E66.9 Obesity, unspecified; Z68.41 Body mass index [BMI] 40.0-44.9, adult; Z88.6 Allergy status to analgesic agent | CPT/HCPCS: 99282; 99283 ==

== ENCOUNTER 2021-09-10 22:41 | Emergency (ER) | payer MEDICAID | END 2021-09-10 23:31 | disposition home or self-care (01) | LOC: JP.ED 22:41 | DX: S02.5XXA Fracture of tooth (traumatic), initial encounter for closed fracture (principal); I10 Essential (primary) hypertension; E66.9 Obesity, unspecified; Z68.42 Body mass index [BMI] 45.0-49.9, adult; Z88.6 Allergy status to analgesic agent | CPT/HCPCS: 99282 ==

== ENCOUNTER 2022-11-22 23:07 | Emergency (ER) | payer BC, MEDICAID | END 2022-11-23 00:48 | disposition home or self-care (01) | LOC: JP.ED 23:07 | DX: M77.01 Medial epicondylitis, right elbow (principal); I10 Essential (primary) hypertension; E66.9 Obesity, unspecified; Z68.41 Body mass index [BMI] 40.0-44.9, adult; Z86.16 Personal history of COVID-19; Z88.8 Allergy status to other drugs, medicaments and biological substances | CPT/HCPCS: 73080-26-RT; 73080-RT; 99283 ==

== ENCOUNTER 2022-12-27 16:46 | Emergency (ER) | payer MEDICAID ==
[2022-12-27] MEDS ORDERED: Lidocaine 1% with EPINEPHrine 1:100,000 50 ML MDV INFILT ONE (17:53)
[2022-12-27] MEDS ORDERED: Bacitracin Oint 1 GM U/D Packet TOP ONE (17:53)
== END 2022-12-27 19:42 | disposition home or self-care (01) ==
LOC: JP.ED 16:46
DX: S61.432A Puncture wound without foreign body of left hand, initial encounter (principal); I10 Essential (primary) hypertension; E66.9 Obesity, unspecified; Z86.16 Personal history of COVID-19; Z88.8 Allergy status to other drugs, medicaments and biological substances; Z68.41 Body mass index [BMI] 40.0-44.9, adult; W26.0XXA Contact with knife, initial encounter
CPT/HCPCS: 12001; 73130-26-LT; 73130-LT; 99283

== ENCOUNTER 2024-06-08 17:07 | Emergency (ER) | payer BC, MEDICAID ==
[2024-06-08 19:08] LABS: CORONAVIRUS COVID-19 NAA NEGATIVE (NEGATIVE); INFLUENZA A NAA NEGATIVE (NEGATIVE); INFLUENZA B NAA NEGATIVE (NEGATIVE); RESPIRATORY SYNCYTIAL VIR NAA NEGATIVE (NEGATIVE)
== END 2024-06-08 19:11 | disposition home or self-care (01) ==
LOC: JP.ED 17:07
DX: J01.10 Acute frontal sinusitis, unspecified (principal); R05.9 Cough, unspecified; I10 Essential (primary) hypertension; E66.9 Obesity, unspecified; Z88.8 Allergy status to other drugs, medicaments and biological substances; Z79.899 Other long term (current) drug therapy; Z86.16 Personal history of COVID-19; Z68.33 Body mass index [BMI] 33.0-33.9, adult
CPT/HCPCS: 0241U; 71046; 99283